=== PATIENT | male | born 1975 | race Caucasian/White ===

== ENCOUNTER 2016-05-27 08:28 | Emergency (ER) | payer BC ==
[2016-05-27 08:51] VITALS: TEMP 98; BMI 27.1
--- NOTE | 2016-05-27 09:37 | EDPRACDOC ---
- General Information Chief Complaint: Chest Pain Stated Complaint: CP Time Seen by Provider: 05/27/16 09:26 Mode of Arrival: Car Home Medications: Home Medications No Home Medications 05/27/16 Allergies/Adverse Reactions: Allergies Allergy/AdvReac Type Severity Reaction Status Date / Time No Known Allergies Allergy Verified 05/27/16 08:51 - History of Present Illness Onset: THIS AM HPI: PT WOKE UP, WENT DOWNSTAIRS. DEEP UNDER ROBBS FELT A POP, GOT NAUSEATED. CONTINUED TO HURT. FELT DIZZY WITH WALKING. FEELS DEEP IN. NO FAM HX OF CAD. NONSMOKER. NO H/O CHOL OR HTN. 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 PAIN 0/10. ED Past Medical History - History Reviewed Yes Nurses notes reviewed and agree except as marked - Patient Medical History Surgical History: Reports: Appendectomy EDM Review of Systems - Review of Systems ROS Negative Except as Marked: Yes All systems reviewed and were negative except as marked - Physical Exam Constitutional: Alert (Awake), No apparent distress Oriented to: Time, Person, Place Last recorded Vital Signs: Last Vital Signs Temp 98.0 F 05/27/16 08:48 Pulse 82 05/27/16 08:48 Resp 18 05/27/16 08:48 BP 157/91 05/27/16 08:48 Pulse Ox 98 05/27/16 08:48 Oxygen Pulse Oxygen Saturation 98 O2 Device Room Air Oxygen Flow Rate Fraction of Inspired Oxygen ( FIO2) - HEENT Head: Normal ( normocephalic) Eye Exam: Normal (PERRL, EOMI, Sclera white) Oropharynx: Normal (Pharynx:Moist without exudate,Gums-no swelling) Nose: No Symptoms Reported (septum midline) Neck: Normal (FROM, trachea at midline) - Respiratory/Cardiovascular Respiratory: Normal - CTA (BBS clear to auscultation without adventitious sounds ) Cardiovascular: Normal (RRR without murmur, gallop or rub) - GI Auscultation: Normal (NABS) Palpation: Normal (Soft,No rebound or guarding, non distended) Tenderness: Non tender Christy's Sign: Negative - Musculoskeletal Back: Normal (Non-Tender) Extremities: Normal (Normal tone, Pulses 2+ No cyanosis or edema, FROM) - Integumentary Skin: Normal, Warm, Dry Lymphatics: Normal (no adenopathy) - Neurologic Memory Impaired: Normal Motor Function: Normal (Normal tone, Pulses 2+ No cyanosis or edema, FROM) Cranial Nerve: Normal (CN II-X11 intact sensation, strength 5/5) Cerebellar: Normal Mood Description: Normal Perception: Normal - Action ASA given in the ED: Yes - Results 05/27/16 09:35 05/27/16 09:35 - EKG EKG #1 EKG Time: 08:31 -: Yes EKG interpreted by me (830) Rate: bpm: 0831 [place]: Normal Rhythm: NSR Block: None Hypertrophy: None ST: Normal Comments: NORMAL EKG - Additional Information HEART SCORE LESS THAN 3. OKAY FOR HOME. Decision Time to Discharge: 11:06 - Departure Yes I personally saw and evaluated the patient. Disposition: Home Condition: Stable Final Diagnosis: Chest pain Qualifiers: Chest pain type: unspecified Qualified Code(s): R07.9 - Chest pain, unspecified Instructions: Chest Pain (ED) Education/Counseling Given To: Patient Education/Counseling Given Regarding: Diagnosis Referrals: None,No Provider [Primary Care Provider] - One Week Prescriptions: No Action No Home Medications 0 NA DIR #0 info Additional Instructions: MOTRIN/TYLENOL FOR PAIN. RETURN FOR WORSENING OR CHANGE IN SYMPTOMS.
[2016-05-27] MEDS ORDERED: ASPIRIN (CHEWABLE) 81 MG TAB PO ONE (09:40)
[2016-05-27 09:48] LABS: AUTOMATED BASOPHIL 0.9 % (0-2); AUTOMATED EOSINOPHIL 5.7 % (0-5); AUTOMATED LYMPH 30.6 % (17-44); AUTOMATED MONOCYTE 7.7 % (3-10); AUTOMATED NEUTROPHIL 55.1 % (45-76); MPV 7.4 fL (7.4-10.4)
[2016-05-27 09:58] LABS: PARTIAL THROMB. TIME 24.1 SEC (22-35)
[2016-05-27 10:01] LABS: BLOOD UREA NITROGEN 11 MG/DL (9-20); CALCIUM 9.1 MG/DL (8.4-10.2); CALCULATED OSMOLALITY 271 MOs/Kg (270-290); CHLORIDE 105 mEq/L (98-107); GLUCOSE 110 mg/dL (70-99); SODIUM LEVEL 141 mEq/L (137-146); TOTAL PROTEIN 7.7 G/DL (6.3-8.2)
--- NOTE | 2016-05-27 10:02 | DIRPT ---
CLINICAL DATA: Left chest pain EXAM: PORTABLE CHEST - 1 VIEW COMPARISON: None available FINDINGS: Lungs are clear. Heart size and mediastinal contours are within normal limits. No effusion. No pneumothorax. Visualized skeletal structures are unremarkable. IMPRESSION: No acute cardiopulmonary disease. Electronically Signed By: John Ahumada M.D. On: 05/27/2016 09:59
[2016-05-27 11:28] VITALS: BP 123/62; PULSE 57
== END 2016-05-27 11:25 | disposition home or self-care (01) ==
LOC: ED 08:28
DX: R07.9 Chest pain, unspecified (principal)
CPT/HCPCS: 36415; 71010; 80053; 84484; 85025; 85610; 85730; 93005; 99284; J3490